=== PATIENT | male | born 1970 | race Caucasian/White ===

== ENCOUNTER 2022-12-16 15:37 | Emergency (ER) | payer OTHER ==
[~2022-12-16] VITALS: Ht 180.3 cm; Wt 78.9 kg
[2022-12-16 15:48] VITALS: BP_SYST 134; PULSE 76; RESP 18; TEMP 98.3; O2SAT 98
--- NOTE | 2022-12-16 15:51 | NUR ---
Patient to ER bed 02 to gown for evaluation. Side rails up.
[2022-12-16] MEDS ORDERED: NACL 0.9% 1,000 ML IV ONE (16:15)
[2022-12-16] MEDS ORDERED: LORazepam 2 MG/ML VIAL IVP ONE (16:15)
--- NOTE | 2022-12-16 16:23 | NUR ---
Patient is a 52-year-old male with a history of alcohol use disorder who was physician referred to the ED by his PCP Dr. Shaun Carrera for acute onset of constant, pressure-like right upper quadrant abdominal pain since 11:30 AM today with associated peripheral tremors, nausea and vomiting. Patient is a chronic pack per day smoker. He has been consuming approximately 8 alcoholic beverages daily for the last 30 years, last one was this morning to "keep off the shakes." No history of seizures. at bedside.
--- NOTE | 2022-12-16 16:40 | NUR ---
MEDICATED ORDERED, WILL CONT TO M ONITOR.
[2022-12-16 16:42] LABS: BASOPHILS # (AUTO) 0.1 K/uL (0.0-0.2); BASOPHILS % (AUTO) 0.6 % (0.0-2.0); EOSINOPHILS % (AUTO) 0.3 % (0.0-4.0); HEMATOCRIT 40.3 % (36-54); HEMOGLOBIN 13.5 g/dL (14.0-18.0); LYMPHOCYTES # (AUTO) 1.2 K/uL (1.0-5.5); LYMPHOCYTES % (AUTO) 10.6 % (20.5-51.5); MEAN CORPUSCULAR HEMOGLOBIN 33 pg (27-31); MEAN CORPUSCULAR HGB CONC 33 % (32-36); MEAN CORPUSCULAR VOLUME 99 fL (79.0-98.0); MONOCYTES # (AUTO) 0.8 K/uL (0.0-1.0); MONOCYTES % (AUTO) 6.8 % (1.7-9.3); NEUTROPHILS # (AUTO) 9.2 K/uL (1.8-7.7); NEUTROPHILS % (AUTO) 81.7 % (40.0-70.0); PLATELET COUNT (AUTO) 337 K/uL (130-430); RED BLOOD CELL COUNT(AUTO) 4.06 MIL/uL (4.2-6.2); RED CELL DISTRIBUTION WIDTH 14.3 % (9.0-15.0); WHITE BLOOD COUNT (AUTO) 11.3 K/uL (4.8-10.8)
[2022-12-16] MEDS ORDERED: KETOROLAC TROMETHAMINE 30 MG VIAL IVP ONE (16:45)
[2022-12-16] MEDS ORDERED: ONDANSETRON HCL 4 MG/2 ML VIAL IVP ONE (16:45)
[2022-12-16 16:59] LABS: INR 1.1 (0.80-1.20)
[2022-12-16 17:01] LABS: ALBUMIN 4.7 g/dL (3.4-4.8); CALCIUM 10.1 mg/dL (8.4-11.0); CREATININE 0.94 mg/dL (0.55-1.30); TOTAL BILIRUBIN 0.7 mg/dL (0.0-1.0)
--- NOTE | 2022-12-16 17:10 | NUR ---
PT WITH EYES CLOSED, IN NAD. RESP EVEN AND UNALBORED, ON RA @97%. SKIN W/D/I. AT BEDSIDE.
[2022-12-16] MEDS ORDERED: NAPR-688 PO (17:26)
[2022-12-16] MEDS ORDERED: LORA-259 PO (17:26)
[2022-12-16] MEDS ORDERED: NALT50TA PO (17:26)
--- NOTE | 2022-12-16 17:52 | NUR ---
Patient given written and verbal discharge instructions and verbalizes understanding. ER MD discussed with patient the results and treatment provided. Patient in stable condition. ID arm band removed. IV catheter removed intact and dressing applied, no active bleeding. Rx of ativan, naltrexone, naproxen, given. Patient educated on pain management and to follow up with PMD. Pain Scale . Opportunity for questions provided and answered. Medication side effect fact sheet provided.
[2022-12-16 17:53] VITALS: BP_SYST 154; PULSE 74; RESP 18; TEMP 98.3; O2SAT 98
== END 2022-12-16 17:56 | disposition home or self-care (01) ==
LOC: SED 15:37
DX: K85.90 Acute pancreatitis without necrosis or infection, unspecified (principal); F10.20 Alcohol dependence, uncomplicated; F17.200 Nicotine dependence, unspecified, uncomplicated; Z79.899 Other long term (current) drug therapy; Y90.6 Blood alcohol level of 120-199 mg/100 ml
CPT/HCPCS: 99285; 74176; 96374; 96375; 96361; 80053; 83690; 85025; 85610; 85730; 36415; 76376; J1885; J2060; J2405; J7030